=== PATIENT | male | born 1935 | race Caucasian/White ===

== ENCOUNTER 2018-08-15 10:42 | Outpatient (CLI) | payer OTHER | END 2018-08-15 13:42 | disposition home or self-care (01) | LOC: NUCLEAR 10:42 | DX: I25.10 Atherosclerotic heart disease of native coronary artery without angina pectoris (principal); I44.7 Left bundle-branch block, unspecified; R01.1 Cardiac murmur, unspecified ==

== ENCOUNTER 2019-09-24 10:17 | Outpatient (CLI) | payer OTHER | END 2019-09-24 10:20 | disposition home or self-care (01) | LOC: NUCLEAR 10:17 | DX: I25.10 Atherosclerotic heart disease of native coronary artery without angina pectoris (principal); I25.2 Old myocardial infarction; I35.9 Nonrheumatic aortic valve disorder, unspecified; I34.8 Other nonrheumatic mitral valve disorders ==